=== PATIENT | male | born 1990 | race Caucasian/White ===

== ENCOUNTER 2024-07-19 19:24 | Emergency (ER) | payer SELFPAY ==
[2024-07-19 19:26] VITALS: BP 139/87
--- NOTE | 2024-07-19 21:26 | ED.GENMED ---
History of Present Illness
General
Chief Complaint: Eye Problems
Time Seen by Provider: 07/19/24 21:26
History of Present Illness
History of Present Illness:
TIME OF INITIAL ENCOUNTER:
HPI: Patient presents from [facility]. He was using 'LimeAway' (low pH) to clean something. Some got into his left eye and he reports markedly decreased vision with discomfort to the left eye.
EXAM:
GENERAL: Well appearing in slight distress
HEENT: Only minimal conjunctival injection of the left eye, no obvious corneal defect, there was no uptake on fluorescein exam, pH was 7 before and after irrigation
NEUROLOGIC: Excellent strength all extremities, no obvious coordination deficits
PSYCHIATRIC: Appropriate mental status, normal insight and judgement
EXTREMITIES: Nontender, no edema, moves all extremities equally
SKIN: No rash, no lesions
NUMBER AND COMPLEXITY OF PROBLEMS ADDRESSED AT THE ENCOUNTER
� Chronic conditions affecting care: Has had fractured vertebrae in the past
� Acute Exacerbation and/or Progression of Chronic Illness: This is an acute problem
� Differential Diagnosis includes: Chemical chemosis, conjunctivitis, eye irritant, foreign body
AMOUNT AND/OR COMPLEXITY OF DATA TO BE REVIEWED AND ANALYZED
� I performed an independent evaluation of and my interpretation is:
EKG:
CT:
X-rays:
Laboratory Studies:
Other:
� Review of other/old records: No old records available for review
� Clinical information was obtained by an independent historian: I spoke to [facility] at bedside
� Prescriptions/Medications Considered but not given:
� Further testing considered but not performed:
RISK OF COMPLICATIONS AND/OR MORBIDITY OR MORTALITY OF PATIENT MANAGEMENT
� Social determinants of health affecting care: Currently is staying at [facility]
� Discussion with other providers: Discussed case with Dr. Allen on-call for ophthalmology who recommends adding TobraDex.
� Escalation of care including admission/observation vs risk of discharge considered: The pH upon arrival was 7 however the patient remarks of ongoing significant discomfort with poor vision therefore we did irrigate with a
Hilton lens with a liter of saline. Repeat pH was 7, visual acuity was 20/70 to the affected eye and 20/20 to the unaffected eye.
ANY OTHER UPDATES:
Phy Exam
Physical Exam
Physical Exam:
See HPI
Course
Orders/Labs/Results
Orders:
Orders
07/19/24 23:00
Tobramycin/Dexamethasone [Tobradex Eye Drops] See Dose Instructions OPHTH Q4H
Vital Signs
Initial and Last Documented VS:
Initial Vital Signs
Temp Pulse Resp BP Pulse Ox
36.6 C 89 18 139/87 100
07/19/24 19:26 07/19/24 19:26 07/19/24 19:26 07/19/24 19:26 07/19/24 19:26
Last Documented Vital Signs
Temp Pulse Resp BP Pulse Ox
36.6 C 76 18 118/77 100
07/19/24 19:26 07/19/24 22:47 07/19/24 22:47 07/19/24 22:47 07/19/24 22:47
*Critical Care Note
Total Time (30-74mins, 75-104mins- exclusive of procedures): Not Applicable
ED Attending Note
-
Portions of this chart may have been created with voice recognition software.� Occasional wrong word or��sound alike� substitutions may have occurred due to the inherent limitations of voice recognition software.
Discharge Plan
Departure
Patient Disposition: Home (Routine Discharge)
Date of Disposition: 07/19/24
Time of Disposition: 22:35
Patient with high blood pressure during this ER visit?: Yes
Discharge Problem:
Chemical exposure of eye
Instructions: How to Use Eye Drops
Referrals:
Brian Allen MD [Active] -
NONE,* [Family Provider] -
Activity Restrictions/Additional Instructions:
The pH before and after the Hilton lens treatment was 7 (normal). Your visual acuity is 20/70 to the affected eye, but since there was no corneal uptake (the orange dye test), Dr. Allen (ophthalmology) feels your eye will be fine. However, I
have given you his contact information for follow up. Use 1 TobraDex drops every 6 hours for a few days. You can also use [id number] artificial tears.
Interventions
Interventions:
*Risk Screen - Suicide Last Done: 07/19/24 19:27
*General Assessment Last Done: 07/19/24 19:27
*Neglect/Abuse Screening Last Done: 07/19/24 19:27
ED- Fall Risk Assessment Last Done: 07/19/24 22:47
*ED COVID-19 Vaccine History Last Done: 07/19/24 19:27
*Nursing Disposition Last Done: 07/19/24 22:47
Discharge Date and Time
Discharge Date/Time: 07/19/24 22:48
Print Language: [id number]
[2024-07-19] MEDS: TOBRADEX EYE DROPS 1 DROP OPHTH (22:38)
[2024-07-19 22:47] VITALS: BP 118/77
== END 2024-07-19 22:48 | disposition home or self-care (01) ==
LOC: EMR 19:24
PROVIDERS: EMERGENCY PHYSICIAN Emergency Medicine
DX: Z77.098 Contact with and (suspected) exposure to other hazardous, chiefly nonmedicinal, chemicals (principal); H53.8 Other visual disturbances
CPT/HCPCS: 99282